=== PATIENT | female | born 1950 | race Caucasian/White ===

== ENCOUNTER 2017-01-12 05:16 | Day surgery (SDC) | payer OTHER ==
[~2017-01-12] VITALS: Ht 165.1 cm; Wt 99.8 kg
[~2017-01-12 05:16] MED LIST: ALPRAZOLAM0.25 M2 PO; AMLODIPINE BESY10 MG PO; ANTIVERT25 MG PO; ATHENOL325 MG PO; BACITRACIN28.4 GM TP; BUSPAR15 MG PO; CARBAMAZEPINE200 M1 PO; CARBAMAZEPINE400 MG PO; COZAAR100 MG PO; Coumadin dosing per PO; Cozaar PO; DEPAKOTE ER500 MG PO; DEPAKOTE500 MG PO; DIVALPROEX SOD250 MG PO; DIVALPROEX SOD500 M1 PO; Depakote PO; EFFEXOR XR37.5 MG PO; FAMOTIDINE20 MG PO; FIORICET 50-301 EACH PO; FIORICET WI1 CAPSULE PO; FLUOXETINE HCL20 MG PO; HYDROCHLOROTH12.5 M3 PO; Hydrodiuril,Oretic,E PO; IBUPROFEN600 MG PO; KEFLEX500 MG PO; KLONOPIN0.5 M1 PO; LAMICTAL100 MG PO; LAMICTAL25 MG PO; LEVETIRACETAM500 MG PO; LEVO-T100 MCG PO; LIDODERM 5% P1 PATCH TD; LOSARTAN POTAS100 MG PO; Levothroid,Synthroid PO; MECLIZINE HCL25 MG PO; NAPRELAN500 MG PO; NAPROSYN500 MG PO; NEURONTIN600 MG PO; Neurontin PO; OXYCODONE HCL5 MG PO; PAROXETINE HCL20 MG PO; POLYETHYLENE GL17 GM PO; POTASSIUM CHLO20 ME1 PO; PRAVASTATIN SOD80 MG PO; Percocet 5/325,Endoc PO; SARAFEM20 M1 PO; SIMVASTATIN40 MG PO; SYNTHROID100 MCG PO; TEGRETOL-XR,CA400 MG PO; TEGRETOL200 MG PO; TOPAMAX25 MG PO; TYLENOL REGULA325 MG PO; ZOCOR40 MG PO; ZOFRAN4 MG PO; Zocor PO
[2017-01-12 06:00] VITALS: BP 150/80
[2017-01-12] MEDS ORDERED: PERCOCET 5/31 TABLET PO (08:06)
[2017-01-12 10:13] VITALS: BP 132/72
[2017-01-12 11:10] VITALS: BP 119/71
== END 2017-01-12 11:30 | disposition home or self-care (01) ==
LOC: SDC 05:16
PROC: 0UDB8ZX Extraction of Endometrium, Via Natural or Artificial Opening Endoscopic, Diagnostic (ICD-10-PCS; principal; 2017-01-12)
DX: C54.1 Malignant neoplasm of endometrium (principal); D25.9 Leiomyoma of uterus, unspecified; Z96.652 Presence of left artificial knee joint; G40.909 Epilepsy, unspecified, not intractable, without status epilepticus; I10 Essential (primary) hypertension; E03.9 Hypothyroidism, unspecified; E78.5 Hyperlipidemia, unspecified; M19.90 Unspecified osteoarthritis, unspecified site; Z82.49 Family history of ischemic heart disease and other diseases of the circulatory system; Z83.3 Family history of diabetes mellitus; Z68.37 Body mass index [BMI] 37.0-37.9, adult
CPT/HCPCS: 88305; J0690; J1100; J1885; J2250; J2405; J3010

== ENCOUNTER 2017-02-27 10:17 | Inpatient (IN) | payer OTHER, MEDICARE ==
[~2017-02-27] VITALS: Ht 165.1 cm; Wt 100.0 kg
[~2017-02-27 10:17] MED LIST changes: +PERCOCET 5/31 TABLET PO
[2017-02-27 12:37] VITALS: BP 144/80
[2017-02-27 18:29] VITALS: BP 130/70
[2017-02-27 20:00] VITALS: BP 140/82
[2017-02-27 20:04] LABS: HEMATOCRIT 43.5 % (36.0-46.0); MCH 31.9 PG (29.0-34.0); MCHC 32.2 G/DL (30.0-36.0); MCV 99.1 FL (83-99); PLATELET COUNT 212 K/uL (156-360); RBC DIS.WIDTH-CV 12.2 % (11.8-14.6); RBC DIS.WIDTH-SD 44.7 % (39-53); RED BLOOD COUNT 4.39 M/uL (3.80-5.20)
[2017-02-27 20:26] LABS: ANION GAP 11 MEQ/L (2-14); CHLORIDE 101 MEQ/L (99-109); GFR ESTIMATE (CALCULATED) > 59 mL/min/; GLUCOSE 165 mg/dL (70-99); POTASSIUM 3.9 MEQ/L (3.7-5.4); SAMPLE HEMOLYSIS CHECK 0; SAMPLE ICTERIC CHECK 0; SAMPLE LIPEMIA CHECK 0; SODIUM 136 MEQ/L (136-147); UREA NITROGEN (BUN) 12 mg/dL (9-23)
[2017-02-27 20:27] LABS: WHITE BLOOD COUNT 13.1 K/uL (4.1-10.2)
[2017-02-27 23:47] VITALS: BP 174/80
[2017-02-28] VITALS (7 sets, daily range): BP systolic 113–180; BP diastolic 58–88
[2017-02-28 06:44] LABS: HEMATOCRIT 43.4 % (36.0-46.0); MCH 32.5 PG (29.0-34.0); MCHC 32.5 G/DL (30.0-36.0); PLATELET COUNT 228 K/uL (156-360); RBC DIS.WIDTH-CV 12.4 % (11.8-14.6); RED BLOOD COUNT 4.34 M/uL (3.80-5.20); WHITE BLOOD COUNT 13.1 K/uL (4.1-10.2)
[2017-02-28 07:13] LABS: ANION GAP 9 MEQ/L (2-14); CHLORIDE 100 MEQ/L (99-109); GFR ESTIMATE (CALCULATED) > 59 mL/min/; GLUCOSE 134 mg/dL (70-99); POTASSIUM 4.4 MEQ/L (3.7-5.4); SAMPLE HEMOLYSIS CHECK 0; SAMPLE ICTERIC CHECK 0; SAMPLE LIPEMIA CHECK 0; SODIUM 138 MEQ/L (136-147); UREA NITROGEN (BUN) 9 mg/dL (9-23)
[2017-03-01 03:31] VITALS: BP 122/55
[2017-03-01 07:26] LABS: HEMATOCRIT 38.8 % (36.0-46.0); MCH 32.5 PG (29.0-34.0); MCHC 32.2 G/DL (30.0-36.0); MCV 100.8 FL (83-99); MEAN PLAT.VOLUME 9.2 uM^3 (9.5-12.4); PLATELET COUNT 183 K/uL (156-360); RBC DIS.WIDTH-CV 12.7 % (11.8-14.6); RBC DIS.WIDTH-SD 47.2 % (39-53); RED BLOOD COUNT 3.85 M/uL (3.80-5.20); WHITE BLOOD COUNT 11.2 K/uL (4.1-10.2)
[2017-03-01 08:01] LABS: ANION GAP 9 MEQ/L (2-14); CHLORIDE 97 MEQ/L (99-109); GFR ESTIMATE (CALCULATED) > 59 mL/min/; GLUCOSE 138 mg/dL (70-99); POTASSIUM 3.6 MEQ/L (3.7-5.4); SAMPLE HEMOLYSIS CHECK 0; SAMPLE ICTERIC CHECK 0; SAMPLE LIPEMIA CHECK 0; SODIUM 135 MEQ/L (136-147); UREA NITROGEN (BUN) 11 mg/dL (9-23)
[2017-03-01 08:20] VITALS: BP 141/78
[2017-03-01 08:36] VITALS: BP 141/78
[2017-03-01] MEDS ORDERED: TRAMADOL HCL50 MG PO (09:21)
== END 2017-03-01 11:28 | disposition home or self-care (01) | DRG 740 ==
LOC: 2SOUTH 10:17 → 2EAST 18:26
PROVIDERS: Obstetrics & Gynecology Gynecologic Oncology
DX: C54.1 Malignant neoplasm of endometrium (principal); I10 Essential (primary) hypertension; J95.89 Other postprocedural complications and disorders of respiratory system, not elsewhere classified; R00.0 Tachycardia, unspecified; R09.02 Hypoxemia; E78.5 Hyperlipidemia, unspecified; R11.0 Nausea; G40.909 Epilepsy, unspecified, not intractable, without status epilepticus; E03.9 Hypothyroidism, unspecified; F41.9 Anxiety disorder, unspecified; D25.9 Leiomyoma of uterus, unspecified
CPT/HCPCS: 36415; 71020; 80048; 80053; 80156; 80164; 80177 90; 83036; 84443; 85025; 85027; 85610 GA; 85730 GA; 86900; 86901; 86920; 88305; 88309; 93005; 94760; 94799; J0330; J0690; J1100; J1170; J1650; J1885; J2250; J2405; J2710; J2765; J3010

== ENCOUNTER 2017-03-31 16:32 | Inpatient (IN) | payer OTHER, MEDICARE ==
[~2017-03-31] VITALS: Ht 165.1 cm; Wt 94.2 kg
[~2017-03-31 16:32] MED LIST changes: +TRAMADOL HCL50 MG PO
[2017-03-31 17:45] LABS: HEMATOCRIT 45.2 % (36.0-46.0); MCH 31.6 PG (29.0-34.0); MCHC 32.7 G/DL (30.0-36.0); MCV 96.6 FL (83-99); MEAN PLAT.VOLUME 9.4 uM^3 (9.5-12.4); PLATELET COUNT 170 K/uL (156-360); RBC DIS.WIDTH-CV 12.2 % (11.8-14.6); RBC DIS.WIDTH-SD 43.6 % (39-53); RED BLOOD COUNT 4.68 M/uL (3.80-5.20); WHITE BLOOD COUNT 7.2 K/uL (4.1-10.2)
[2017-03-31 17:53] LABS: CHLORIDE 101 mEq/L (99-109); SODIUM 141 mEq/L (136-147)
[2017-03-31 17:55] LABS: GLUCOSE 116 mg/dL (70-99)
[2017-03-31 17:56] LABS: ANION GAP 10 MEQ/L (2-14)
[2017-03-31 17:57] LABS: TOTAL BILIRUBIN 0.3 mg/dL (0.0-1.0)
[2017-03-31 17:58] LABS: ALKALINE PHOSPHATASE 74 IU/L (3-129)
[2017-03-31 17:59] LABS: GFR ESTIMATE (CALCULATED) > 59 mL/min/
[2017-03-31 18:00] LABS: UREA NITROGEN (BUN) 8 mg/dL (9-23)
[2017-03-31 18:19] LABS: LIPASE 11 U/L (1.0-51.0)
[2017-03-31 18:22] LABS: ADD MIUA? YES; BILIRUBIN NEGATIVE; BLOOD SMALL; COLOR AMBER ((YELLOW)); GLUCOSE (STRIP) NEGATIVE; KETONES 5; LEUKOCYTES SMALL; NITRITE NEGATIVE; PROTEIN (STRIP) 30; SPECIFIC GRAVITY 1.018 (1.000-1.030); UROBILINOGEN 0.2 MG/DL (0.2-1.0)
[2017-03-31 18:24] LABS: TROP-I INTERPRETATION NEGATIVE; TROPONIN-I < 0.01 ng/mL (0.0-0.30)
[2017-03-31 18:31] LABS: BACTERIA RARE /HPF; EPITHELIAL CELLS 1+ /HPF; MUCUS 4+ /LPF; RED BLOOD CELLS 0-5 /HPF (0-5); UCUL ADDED? NO
[2017-03-31] MEDS ORDERED: ROWEEPRA500 MG PO (21:48)
[2017-03-31 23:47] VITALS: BP 180/79
[2017-04-01 04:57] VITALS: BP 112/63
[2017-04-01 06:18] LABS: HEMATOCRIT 38.2 % (36.0-46.0); MCH 31.1 PG (29.0-34.0); MCHC 31.7 G/DL (30.0-36.0); MCV 98.2 FL (83-99); MEAN PLAT.VOLUME 9.6 uM^3 (9.5-12.4); PLATELET COUNT 145 K/uL (156-360); RBC DIS.WIDTH-CV 12.2 % (11.8-14.6); RED BLOOD COUNT 3.89 M/uL (3.80-5.20); WHITE BLOOD COUNT 5.5 K/uL (4.1-10.2)
[2017-04-01 06:26] LABS: ANION GAP 8 MEQ/L (2-14); CHLORIDE 104 MEQ/L (99-109); GFR ESTIMATE (CALCULATED) > 59 mL/min/; GLUCOSE 106 mg/dL (70-99); SAMPLE HEMOLYSIS CHECK 1; SAMPLE ICTERIC CHECK 0; SAMPLE LIPEMIA CHECK 0; SODIUM 142 MEQ/L (136-147); UREA NITROGEN (BUN) 7 mg/dL (9-23)
[2017-04-01 07:15] VITALS: BP 129/60
[2017-04-01] MEDS ORDERED: CARBAMAZEPINE400 MG PO (09:53)
[2017-04-01 11:18] VITALS: BP 122/68
[2017-04-01 15:55] VITALS: BP 117/59
[2017-04-01 20:00] VITALS: BP 125/66
[2017-04-02 01:09] VITALS: BP 127/71
[2017-04-02 04:43] VITALS: BP 121/61
[2017-04-02 08:57] VITALS: BP 182/98
[2017-04-02 12:14] VITALS: BP 168/94
[2017-04-02 16:43] VITALS: BP 111/64
[2017-04-02 20:08] VITALS: BP 127/65
[2017-04-03 00:37] VITALS: BP 130/68
[2017-04-03 04:38] VITALS: BP 136/84
[2017-04-03 11:20] VITALS: BP 175/84
[2017-04-03] MEDS ORDERED: CEFTIN500 MG PO (15:26)
[2017-04-03] MEDS ORDERED: DONEPEZIL HCL5 MG PO (15:26)
[2017-04-03] MEDS ORDERED: PRIMIDONE50 MG PO (15:26)
[2017-04-03] MEDS ORDERED: EFFEXOR XR37.5 MG PO (15:27)
[2017-04-03] MEDS ORDERED: ANTIVERT25 MG PO (15:27)
[2017-04-03] MEDS ORDERED: SENNA LAX8.6 MG PO (15:27)
[2017-04-03] MEDS ORDERED: PEPCID40 MG PO (15:28)
== END 2017-04-03 18:05 | disposition home health service (06) | DRG 690 ==
LOC: EME 16:32 → 5WEST 21:47 → EDOF 21:47 → 5WEST 23:31
PROVIDERS: Hospitalist
DX: N39.0 Urinary tract infection, site not specified (principal); R11.2 Nausea with vomiting, unspecified; E87.6 Hypokalemia; E86.0 Dehydration; R41.82 Altered mental status, unspecified; C54.1 Malignant neoplasm of endometrium; E03.9 Hypothyroidism, unspecified; G40.209 Localization-related (focal) (partial) symptomatic epilepsy and epileptic syndromes with complex partial seizures, not intractable, without status epilepticus; E78.5 Hyperlipidemia, unspecified; F03.90 Unspecified dementia, unspecified severity, without behavioral disturbance, psychotic disturbance, mood disturbance, and anxiety; I10 Essential (primary) hypertension; K59.00 Constipation, unspecified; F32.9 Major depressive disorder, single episode, unspecified; H91.92 Unspecified hearing loss, left ear; F41.9 Anxiety disorder, unspecified; R19.7 Diarrhea, unspecified; R25.1 Tremor, unspecified; R26.2 Difficulty in walking, not elsewhere classified; R63.4 Abnormal weight loss; E66.9 Obesity, unspecified; Z68.34 Body mass index [BMI] 34.0-34.9, adult; Z82.49 Family history of ischemic heart disease and other diseases of the circulatory system; Z90.710 Acquired absence of both cervix and uterus
CPT/HCPCS: 70450; 71020; 74176; 80048; 80053; 80156; 80164; 80175 90; 81003; 83690; 84484; 85027; 94799; 95819; 97530 GO; 97530 GP; 99281; 99285; G0378; G8978 GP CJ; G8979 GP CH; J0696; J1644; J2405; J3480; J7030; J7050; J7120; S0028